=== PATIENT | male | born 1950 | race Caucasian/White ===

== ENCOUNTER 2023-01-13 08:01 | Outpatient (OUT) | payer OTHER, SELFPAY ==
--- NOTE | 2023-01-13 08:04 | VEIN_ITS ---
Patient: JANUARY BARBOZA Exam Date: 01/13/2023 : 1950 Gender:M Ordering : DR SHERMAN PICKETT M.D. Admission #: [id number] Family : Order #: [id number] CLICK HERE TO VIEW EXAM RADIOLOGY REPORT PROCEDURE: [facility]ILITY EST COMPREHENSIVE VEIN CENTER - OFFICE VISIT INITIAL COMPARISON: None. PROGRESS NOTES: [age] year old male who presents with a 8 year history of dilated bulging veins, leg swelling, pain, cramping, itching. The patient's right leg symptoms are worse than the left. There has been a progression of symptoms over time. This increases with prolonged leg dependency. The patient describes an improvement with rest, elevation, exercise, and support stockings. The patient denies any signs and symptoms to suggest arterial ischemia. The patient describes a family history : Unknown. The patient has drinking and smoking history of : Occasional alcohol consumption. No tobacco use.. Patient has a past medical history significant for hypertension, hypercholesterolemia. The patient denies a history of deep venous thrombus or pulmonary embolus. See separate history and physical for medication list. No prior treatment for varicose or spider veins. Past treatment included use of compression stockings. After review of nurse notes, history and physical exam I discussed at length the pathophysiology of venous hypertension and possible treatments, therapies and strategies available. We discussed at length the importance of elevating the lower extremities above the level of the heart, increased physical activity and compression stocking use. Ultrasound venous reflux study performed today was discussed at length with the patient. The report demonstrates abnormally dilated and incompetent great saphenous vein with numerous incompetent branch saphenous varicosities. Dilated and incompetent right calf metal bumper vein. Dilated and incompetent proximal segment of the left small saphenous vein, but no significant branch saphenous varicosities arising from the small saphenous vein.. PHYSICAL EXAM: The right leg demonstrates numerous markedly dilated varicosities, multiple spider veins, no ulceration, moderate edema, slight skin discoloration. The left leg demonstrates a few varicosities, a few spider veins, no ulceration, minimal edema, no skin discoloration. Both thighs, legs and feet were symmetrically warm to the touch. Good posterior tibial and dorsalis pedis pulses were present bilaterally. VEIN/VC Facility EST Comprehensive IMPRESSION: 1. Marked right lower extremity venous insufficiency 2. Marked right lower extremity varicose veins 3. Moderate right lower extremity subcutaneous edema 4. No flow significant arterial disease 5. CEAP: C3, AP, AP, CT PLAN: 1. Continued use of compression stockings 2. Elevated legs and increased physical activity symptomatic relief 3. Endovenous laser ablation of right great saphenous vein. Patient needs microfoam chemical ablation for his numerous branch saphenous varicosities but this will not be approved by his insurance. Nurse notes, history and physical were reviewed and confirmed, see attached forms. The nurse was present throughout the physical exam and consultation Dictated by: Jake Christianson M.D. on 01/13/2023 at 11:27 Approved by: Jake Christianson M.D. on 01/13/2023 at 11:36
--- NOTE | 2023-01-13 08:04 | VEIN_ITS ---
Patient: JANUARY BARBOZA Exam Date: 01/13/2023 : 1950 Gender:M Ordering : DR SHERMAN PICKETT M.D. Admission #: [id number] Family : Order #: [id number] CLICK HERE TO VIEW EXAM RADIOLOGY REPORT PROCEDURE: VC EXT VENOUS REFLUX JOS LMTD COMPARISON: None. INDICATIONS: I83.813 Pain due to varicose veins of bilateral legs TECHNIQUE: Duplex imaging of the lower extremity to assess the deep and superficial venous system for the presence of deep or superficial venous incompetence and to document the location and severity of disease. The study includes evaluation of the great saphenous vein (GSV), anterior accessory saphenous vein (AASV) and small saphenous vein (SSV). Patient scanned in reverse Trendelenburg and standing. FINDINGS: RIGHT LOWER EXTREMITY: Saphenofemoral Junction Reflux: Yes 13.6mm 3.3 sec GSV: Diam (mm) Reflux/ Time (sec) Proximal Thigh 16.5 Yes 1.7 Mid Thigh 8.1 Yes 1.7 Distal Thigh 8.5 Yes 2.3 Prox Calf 7.6 Yes 1.6 Mid Calf 4.5 Yes 1.9 Saphenopopliteal Junction Reflux: 4.6mm No SSV: Proximal Calf 3.6 No Mid Calf 3.3 No AASV: Proximal Thigh Mid Thigh Distal Thigh Thrombi: No acute or chronic thrombus visualized Compressibility: Normal Flow: Normal Preforator: Dist/med calf 4.3mm with 1.0s reflux. Mid/med calf 2.9mm with 0s reflux. Tech Note: Incompetent SFJ and GSV. Patent varicose vein dist/med 4.8mm with 1.0s reflux. Patent varicose vein mid/med calf 6.3mm with 0.8s reflux. Patent varicose vein prox/med calf 5.7mm with 0.8s reflux. Patent varicose vein prox/med calf 12mm with 2.0s reflux. LEFT LOWER EXTREMITY: Saphenofemoral Junction Reflux: Yes 5.5 mm 1.1 sec GSV: Diam (mm) Reflux/Time (sec) Proximal Thigh 3.3 No Mid Thigh 2.8 Yes 1.4 Distal Thigh 3.3 No Prox Calf 2.9 No Mid Calf 2.7 No Saphenopopliteal Junction Relux: 5.5 mm Yes 1.8 SSV: Proximal Calf 5.5 Yes 1.4 Mid Calf 3.0 Yes 1.0 AASV: Not present Proximal Thigh Mid Thigh Distal Thigh Thrombi: No acute or chronic thrombus visualized Compressibility: Normal Flow: Normal Clean Up Supervisor: Dist/med calf 3.5mm with 0s reflux. Tech Note: Incompetent SPJ and SSV. Patent varicose vein mid/med calf 2.4mm with 1.4s reflux. CONCLUSION: 1. Abnormally dilated and incompetent right great saphenous vein. 2. Numerous dilated and incompetent branch saphenous varicosities arising from right great saphenous vein. 3. Incompetent and dilated proximal left small saphenous vein. No appreciable varicosities arising from the small saphenous vein. Dictated by: Jake Christianson M.D. on 01/13/2023 at 09:30 Approved by: Jake Christianson M.D. on 01/13/2023 at 09:34
== END 2023-01-13 08:02 | disposition home or self-care (01) ==
PROVIDERS: PCP Radiology Diagnostic Radiology; Visit Provider Radiology Diagnostic Radiology
DX: I83.811 Varicose veins of right lower extremity with pain (principal)
CPT/HCPCS: 93970; G0463

== ENCOUNTER 2023-05-13 09:52 | Outpatient (OUT) | payer OTHER, SELFPAY ==
--- NOTE | 2023-05-13 09:53 | VEIN_ITS ---
[address] [address] Patient Name: JANUARY BARBOZA MRN: [id number] date: 1950 Sex: M Assigned Patient Location: Current Patient Location: Accession/Order Number: [id number] Exam Date: 05/13/2023 09:53 Report Date: 05/13/2023 12:07 At the request of: SHERMAN PICKETT Procedure: VC Endovenous Ablation 1VeinRT EXAMINATION: VC Endovenous Ablation 1VeinRT HISTORY: I83.813 Painful varicose veins of bilat lower extremities The risks and benefits of the procedure had been previously discussed, and were rediscussed at length. Informed written consent was obtained. Lang London RN and Nicole Monzon RDMS, RVT assisted. Time out procedure was performed. The right lower extremity was prepared and draped in the usual sterile fashion to allow knee flexion in the sterile field. Duplex ultrasound probe was draped in a sterile cover, sterile transmission gel was used. Venous mapping was performed with the areas of dilation and large tributaries marked. The total length was 65 cm from the entry 3 cm above the ankle to 3 cm below the Saphenofemoral junction. The diameter of the right great saphenous vein ranged from 16.5 mm. A 30 gauge needle and 1% buffered lidocaine was used to anesthetize the entry site. A 4 mm incision was made with a scalpel and the saphenous vein was entered percutaneously under direct ultrasound guidance with a micropuncture set, a single stick was successful in gaining access. A micro-guide wire was inserted and the needle removed. A micro-set including a dilator was inserted over the microwire and the needle and dilator were removed. A guide wire was inserted through the micro-set and guided through the saphenous vein to the saphenofemoral junction. The dilator was removed and an introducer sheath was inserted over the wire until the end of the sheath entered the saphenofemoral junction. The dilator and wire were removed and the 600 micron fiber was introduced and placed and positioned so that it extended beyond the sheath and was 3 cm distal to the saphenofemoral or saphenopopliteal junction. Final position of the fiber was determined by ultrasound guidance and duplex imaging. Tumescent anesthetic was delivered by ultrasound guidance. 375 cc of fluid was delivered along the entire course of the saphenous vein. The solution consisted of 1000 cc of normal saline with 40 mL of 1% lidocaine and 20 mL of sodium bicarbonate. A final positioning check was made. The energy source was turned on by means of the foot pedal and the fiber and sheath were withdrawn. The total number of Joules delivered was 4080. The laser was active for 510 seconds under continuous pulse, average laser use of 8 J. Laser start time 11:04 AM, 05/13/2023. Laser stop time 11:13 AM, 05/13/2023. A duplex ultrasound revealed compressibility and flow at the saphenofemoral junction immediately after the procedure. Hemostasis at the access site was achieved. The skin incision of the saphenous vein was closed with a 4 x 4. A compression stocking was applied. Postop instructions were given. A follow up appointment was recommended and scheduled. The patient tolerated the procedure well. Electronically authenticated by: KHANH RAI Date: 05/13/2023 12:07
[2023-05-13] MEDS: LIDOCAINE HCL 1% 100 MG/10 ML MDV INJ (10:38)
[2023-05-13] MEDS: 0.9 % SODIUM CHLORIDE 500 ML, LIDOCAINE HCL 20 ML, SODIUM BICARBONATE 10 MEQ INJ (10:39)
== END 2023-05-13 09:53 | disposition home or self-care (01) ==
LOC: VC 09:53
PROVIDERS: PCP Radiology Diagnostic Radiology; Visit Provider Radiology Diagnostic Radiology
DX: I83.813 Varicose veins of bilateral lower extremities with pain (principal)
CPT/HCPCS: 36478

== ENCOUNTER 2023-05-20 09:39 | Outpatient (OUT) | payer OTHER, SELFPAY ==
--- NOTE | 2023-05-20 09:40 | VEIN_ITS ---
Patient Name: JANUARY BARBOZA MR#: [id number] : 1950 Exam Date: 05/20/2023 Ordering Doctor: DR BENJAMÍN REAVES M.D. RADIOLOGY REPORT PROCEDURE: VC EXT VENOUS RT LMTD COMPARISON: None. INDICATIONS: I80.01 Phlebitis of superficial veins of rt lower extremity TECHNIQUE: Lower extremity polo scale and Duplex Doppler evaluation of the deep venous system from the inguinal ligament through the calf veins. FINDINGS: REGION: Right lower extremity. THROMBI: Negative for DVT. Heat induced thrombus visualized 1.3 cm from the SFJ. The thrombus extends from groin to distal calf. Heat induced thrombus is also visualized in multiple varicose veins coming off of GSV. COMPRESSIBILITY: Non-compressible segments corresponding to thrombus FLOW: Areas of absent flow corresponding to thrombus CONCLUSION: Post ablation occlusion of the right great saphenous vein with heat induced thrombus 1.3 cm from the saphenofemoral junction Dictated by: Benjamín Reaves MD on 05/20/2023 at 10:05 Approved by: Benjamín Reaves MD on 05/20/2023 at 10:06
--- NOTE | 2023-05-20 09:40 | VEIN_ITS ---
Patient Name: JANUARY BARBOZA MR#: [id number] : 1950 Exam Date: 05/20/2023 Ordering Doctor: DR BENJAMÍN REAVES M.D. RADIOLOGY REPORT PROCEDURE: FACILITY EST LMTD VEIN CENTER - OFFICE VISIT FOLLOW UP COMPARISON: None. PROGRESS NOTES: The patient reports some moderate tenderness and areas of numbness following intravenous laser ablation of the right great saphenous vein. The patient did not require oral analgesics. Patient worn his compression stocking. The patient has followed our recommendations to walk 20-30 minutes once or twice per day since the procedure. Physical exam demonstrates 3 separate areas of bruising likely related to tumescence injection. The incision is closed. Thrombosed right great saphenous vein can be palpated. Several branch saphenous tributaries are thrombosed by physical exam. The patient does have an area of numbness along mid right calf likely related to the procedure. I informed the patient that the tenderness would continue to improve over the next several weeks. The numbness statistically will improve but can take up to 2 years. 25% of numbness does not resolve. Review of the ultrasound performed the same day demonstrates occlusive thrombus extending throughout the treated right great saphenous vein with heat induced thrombus 1.3 cm from the saphenofemoral junction. No deep vein thrombus. The patient's insurance declined micro foam chemical ablation. I instructed the patient to return if there is a change in his insurance situation as treatment of his patent varicose veins is recommended. VEIN/ Facility EST LMTD IMPRESSION: 1. Successful ablation of the right great saphenous vein 2. No additional treatments at this time due to patient's lack of insurance coverage for micro foam chemical ablation. PLAN: Follow-up as needed Nurse notes, history and physical were reviewed and confirmed, see attached forms. The nurse was present throughout the physical exam and consultation Dictated by: Benjamín Reaves MD on 05/20/2023 at 10:15 Approved by: Benjamín Reaves MD on 05/20/2023 at 10:17
== END 2023-05-20 09:40 | disposition home or self-care (01) ==
LOC: VC 09:39
PROVIDERS: PCP Radiology Diagnostic Radiology; Visit Provider Radiology Diagnostic Radiology
DX: I80.01 Phlebitis and thrombophlebitis of superficial vessels of right lower extremity (principal)
CPT/HCPCS: 93971; G0463